=== PATIENT | male | born 1945 | race Caucasian/White ===

== ENCOUNTER → 2018-06-26 | Outpatient (CLI) | payer MEDICARE ==
[2018-06-26 10:05] LABS: Basophils # (A) 0.1 k/uL (0-0.2); Basophils % (A) 1 %; Eosinophils # (A) 0.5 k/uL (0-0.7); Eosinophils % (A) 5 %; HCT 49.2 % (39.0-53.0); HGB 15.5 gm/dL (13.0-17.5); Lymphocytes # (A) 1.2 k/uL (1.0-4.8); Lymphocytes % (A) 12 %; MCH 27.7 pg (25.0-35.0); MCHC 31.6 g/dL (31.0-37.0); MCV 87.7 fL (80.0-100.0); Mean Platelet Volume 7.2; Monocytes # (A) 0.8 k/uL (0-1.0); Monocytes % (A) 8 %; Neutrophils # (A) 7.2 k/uL (1.3-7.7); Neutrophils % (A) 73 %; Platelet Count 416 k/uL (150-450); RBC 5.62 m/uL (4.30-5.90); RDW 13.7 % (11.5-15.5); WBC 9.9 k/uL (3.8-10.6)
[2018-06-26 17:46] LABS: Albumin/Globulin Ratio 1.82 (1.60-3.17); Anion Gap 7.6 mmol/L (4.00-12.00); Calcium 9.4 mg/dL (8.7-10.3); Carbon Dioxide 28.4 mmol/L (21.6-31.8); Globulin 2.2 g/dL (1.6-3.3); LDL Cholesterol,Calculated 160.6 mg/dL (0.0-131.0); Potassium 4.9 mmol/L (3.5-5.5); Total Bilirubin 0.5 mg/dL (0.2-1.2); Total Protein 6.2 g/dL (6.2-8.2); VLDL Calculation 22.4 mg/dL (5.00-40.00)
[2018-06-26 17:54] LABS: T4, Free (Free Thyroxine) 1.1 ng/dL (0.80-1.80)
== END | disposition home or self-care (01) ==
LOC: LABWHC1 08:20
PROVIDERS: ATTEND Internal Medicine Critical Care Medicine
DX: E78.5 Hyperlipidemia, unspecified (principal); I48.91 Unspecified atrial fibrillation; I82.409 Acute embolism and thrombosis of unspecified deep veins of unspecified lower extremity
CPT/HCPCS: 84439; 80061; 80053; 84443; 85025; 82306; 83036; 36415; G0103

== ENCOUNTER 2020-10-19 09:35 | Emergency (ER) | payer MEDICARE ==
[2020-10-19 09:48] VITALS: BP 152/76; PULSE 74; RESP 18; TEMP 98.4
[2020-10-19] MEDS ORDERED: methylPREDNISolone SOD SUCCI 125 MG/2 ML VIAL IM ONE (09:56)
--- NOTE | 2020-10-19 09:59 | ED ---
Skin/Abscess/FB HPI - General Chief complaint: Skin/Abscess/Foreign Body Stated complaint: Poison Meri on face Time Seen by Provider: 10/19/20 09:49 Source: patient, RN notes reviewed Mode of arrival: ambulatory Limitations: no limitations - History of Present Illness Initial comments: 75-year-old male presents emergency Department chief complaint of poison meri. Patient states he was cutting up and will treat states her some eduin on it. Patient states that he noticed some rash on his face, extremities. Patient states. She has been using calamine lotion. He states he was worried because his eyes have some swelling. Denies any difficulty breathing or difficulty swallowing patient offers no complaints. - Related Data Previous Rx's Medication Instructions Recorded predniSONE 10 mg PO DIRECTED #20 tab 10/19/20 Allergies Allergy/AdvReac Type Severity Reaction Status Date / Time cephalexin [From Keflex] Allergy Severe Dyspnea Verified 10/19/20 09:44 Review of Systems ROS Statement: Those systems with pertinent positive or pertinent negative responses have been documented in the HPI. ROS Other: All systems not noted in ROS Statement are negative. Past Medical History Past Medical History: Hyperlipidemia, Hypertension History of Any Multi-Drug Resistant Organisms: None Reported Past Surgical History: Coronary Bypass/CABG Additional Past Surgical History / Comment(s): omenectomy Past Psychological History: No Psychological Hx Reported Smoking Status: Never smoker Past Alcohol Use History: Occasional Past Drug Use History: None Reported General Exam Limitations: no limitations General appearance: alert, in no apparent distress Head exam: Present: atraumatic, normocephalic, normal inspection Eye exam: Present: normal appearance, PERRL, EOMI, periorbital swelling. Absent: scleral icterus, conjunctival injection ENT exam: Present: normal exam, normal oropharynx, mucous membranes moist Neck exam: Present: normal inspection, full ROM. Absent: tenderness, meningismus, lymphadenopathy Respiratory exam: Present: normal lung sounds bilaterally. Absent: respiratory distress, wheezes, rales, rhonchi, stridor Cardiovascular Exam: Present: regular rate, normal rhythm, normal heart sounds. Absent: systolic murmur, diastolic murmur, rubs, gallop, clicks Neurological exam: Present: alert, oriented X3, CN II-XII intact Skin exam: Present: warm, dry, intact, normal color, rash (Vesicular rash on extremities, facial region) Course Vital Signs 10/19/20 09:44 Temperature 98.4 F Pulse Rate 74 Respiratory 18 Rate Blood Pressure 152/76 O2 Sat by Pulse 97 Oximetry Medical Decision Making - Medical Decision Making Patient presented for poison meri. Patient does have some periorbital swelling patient was given IM Solu-Medrol be discharged on prednisone. Disposition Clinical Impression: Contact dermatitis, Poison meri dermatitis Disposition: HOME SELF-CARE Condition: Stable Instructions (If sedation given, give patient instructions): Poison Meri (ED) Additional Instructions: Please return to the Emergency Department if symptoms worsen or any other concerns. Prescriptions: predniSONE 10 mg PO DIRECTED #20 tab Is patient prescribed a controlled substance at d/c from ED?: No Referrals: Vishnu Butcher DO [Primary Care Provider] - 1-2 days Time of Disposition: 09:59
== END 2020-10-19 10:30 | disposition home or self-care (01) ==
LOC: EC 09:35
DX: L23.7 Allergic contact dermatitis due to plants, except food (principal); I10 Essential (primary) hypertension; E78.5 Hyperlipidemia, unspecified; Z88.1 Allergy status to other antibiotic agents
CPT/HCPCS: 96372; 99282; J2930

== ENCOUNTER → 2020-11-16 | Outpatient (CLI) | payer MEDICARE ==
[2020-11-16 16:08] LABS: Basophils # (A) 0.08 X 10*3/uL (0.00-0.10); Basophils % (A) 0.8 %; Eosinophils # (A) 0.45 X 10*3/uL (0.04-0.35); Eosinophils % (A) 4.3 %; HCT 45.2 % (39.6-50.0); HGB 14.1 g/dL (13.0-17.0); Lymphocytes # (A) 1.29 X 10*3/uL (0.90-5.00); Lymphocytes % (A) 12.2 %; MCH 28.4 pg (27.0-32.0); MCHC 31.2 g/dL (32.0-37.0); MCV 90.9 fL (80.0-97.0); Mean Platelet Volume 10.3 fL (9.5-12.2); Monocytes # (A) 1.16 X 10*3/uL (0.20-1.00); Neutrophils # (A) 7.51 X 10*3/uL (1.80-7.70); Neutrophils % (A) 71.2 %; Platelet Count 507 X 10*3/uL (140-440); RBC 4.97 X 10*6/uL (4.40-5.60); RDW 14.9 % (11.5-14.5); WBC 10.54 X 10*3/uL (4.50-10.00)
[2020-11-16 17:44] LABS: African American GFR (CKD) 95.8 (60.0-200.0); Albumin 3.9 g/dL (3.80-4.90); Albumin/Globulin Ratio 1.63 (1.60-3.17); Anion Gap 7.9 mmol/L (4.00-12.00); BUN/Creat Ratio 11.11 Ratio (12.00-20.00); Bilirubin, Conjugated 0.2 mg/dL (0.20-0.40); Bilirubin,Unconjugated 0.3 mg/dL; Calcium 8.9 mg/dL (8.7-10.3); Carbon Dioxide 27.1 mmol/L (21.6-31.8); Chol/HDL Ratio 3.62; Globulin 2.4 g/dL (1.6-3.3); LDL Cholesterol,Calculated 74.4 mg/dL (0.0-131.0); Non-African American GFR(CKD) 82.7 (60.0-200.0); Potassium 4.6 mmol/L (3.5-5.5); Total Bilirubin 0.5 mg/dL (0.2-1.2); Total Protein 6.3 g/dL (6.2-8.2); VLDL Calculation 14.6 mg/dL (5.00-40.00)
[2020-11-16 17:52] LABS: PSA Annual Screen 2.7 ng/mL (0.0-4.0)
== END | disposition home or self-care (01) ==
LOC: LABWHC1 07:57
PROVIDERS: ATTEND Internal Medicine Critical Care Medicine
DX: Z00.00 Encounter for general adult medical examination without abnormal findings (principal); E55.9 Vitamin D deficiency, unspecified; I25.10 Atherosclerotic heart disease of native coronary artery without angina pectoris; R53.83 Other fatigue; R05 Cough
CPT/HCPCS: 84439; 80061; 80053; 82248; 84443; 85025; 82306; 83036; 36415; G0103

== ENCOUNTER → 2021-11-28 | Outpatient (CLI) | payer MEDICARE ==
[2021-11-28 15:15] LABS: Basophils # (A) 0.06 X 10*3/uL (0.00-0.10); Basophils % (A) 0.6 %; Eosinophils # (A) 0.28 X 10*3/uL (0.04-0.35); Eosinophils % (A) 2.6 %; HCT 44.3 % (39.6-50.0); HGB 14.3 g/dL (13.0-17.0); Immature Grans, Automated 0.4 %; Lymphocytes # (A) 1.01 X 10*3/uL (0.90-5.00); Lymphocytes % (A) 9.4 %; MCH 28.3 pg (27.0-32.0); MCHC 32.3 g/dL (32.0-37.0); MCV 87.7 fL (80.0-97.0); Mean Platelet Volume 10.4 fL (9.5-12.2); Monocytes # (A) 1.05 X 10*3/uL (0.20-1.00); Monocytes % (A) 9.7 %; NRBC Per 100 WBC 0 /100 WBCS (0.0-0.0); Neutrophils # (A) 8.36 X 10*3/uL (1.80-7.70); Neutrophils % (A) 77.3 %; Platelet Count 444 X 10*3/uL (140-440); RBC 5.05 X 10*6/uL (4.40-5.60); RDW 14.6 % (11.5-14.5)
[2021-11-28 18:18] LABS: ALT 14 U/L (10-49); AST 13 U/L (14-35); African American GFR (CKD) 95.1 (60.0-200.0); Albumin 3.8 g/dL (3.8-4.9); Albumin/Globulin Ratio 1.46 (1.60-3.17); Alkaline Phosphatase 111 U/L (41-126); BUN/Creat Ratio 14.56 Ratio (12.00-20.00); Bilirubin, Conjugated <0.20 mg/dL (0.20-0.40); Blood Urea Nitrogen 13.1 mg/dL (9.0-27.0); Calcium 9.1 mg/dL (8.7-10.3); Carbon Dioxide 26.8 mmol/L (20.0-27.5); Chloride 103 mmol/L (96-109); Chol/HDL Ratio 3.44 Ratio; Globulin 2.6 g/dL (1.6-3.3); Glucose 93 mg/dL (70-110); LDL Cholesterol,Calculated 90.3 mg/dL (0.0-131.0); Non-African American GFR(CKD) 82.1 (60.0-200.0); Potassium 4.5 mmol/L (3.5-5.5); Sodium 139 mmol/L (135-145); Total Protein 6.4 g/dL (6.2-8.2); VLDL Calculation 13.34 mg/dL (5.00-40.00)
== END | disposition home or self-care (01) ==
LOC: LABWHC1 10:19
PROVIDERS: ATTEND Internal Medicine Critical Care Medicine
DX: I25.10 Atherosclerotic heart disease of native coronary artery without angina pectoris (principal); I82.409 Acute embolism and thrombosis of unspecified deep veins of unspecified lower extremity; I48.20 Chronic atrial fibrillation, unspecified
CPT/HCPCS: 84439; 80061; 80053; 82248; 84443; 85025; 84403; 82306; 83036; 36415; G0103

== ENCOUNTER → 2022-11-27 | Outpatient (CLI) | payer MEDICARE ==
[2022-11-27 12:50] LABS: Appearance,Urine Clear (Clear); Bilirubin,Urine Negative (Negative); Blood,Urine Negative (Negative); Color,Urine Yellow; Glucose,Urine (UA) Negative (Negative); Ketones,Urine Negative (Negative); Leukocyte Esterase,Urine Negative (Negative); Nitrite,Urine Negative (Negative); PH, Urine 5.5 (5.0-8.0); Protein,Urine Negative (Negative); Specific Gravity,Urine 1.026 (1.001-1.035); Urobilinogen,Urine <2.0 mg/dL (<2.0)
[2022-11-27 15:25] LABS: Basophils # (A) 0.05 X 10*3/uL (0.00-0.10); Basophils % (A) 0.4 %; Eosinophils # (A) 0.19 X 10*3/uL (0.04-0.35); Eosinophils % (A) 1.5 %; HCT 46.4 % (39.6-50.0); Lymphocytes # (A) 1.19 X 10*3/uL (0.90-5.00); Lymphocytes % (A) 9.5 %; MCHC 32.3 d/dL (32.0-37.0); MCV 89.7 FL (80.0-97.0); Mean Platelet Volume 10.6 FL (9.5-12.2); Monocytes # (A) 1.29 X 10*3/uL (0.20-1.00); Monocytes % (A) 10.3 %; NRBC Per 100 WBC 0 X 10*3/uL (0.00-0.01); Neutrophils # (A) 9.71 X 10*3/uL (1.80-7.70); Neutrophils % (A) 77.8 %; Platelet Count 426 X 10*3/uL (140-440); RBC 5.17 X 10*6/uL (4.40-5.60); RDW 14.6 % (11.5-14.5); WBC 12.49 X 10*3/uL (4.50-10.00)
== END | disposition home or self-care (01) ==
LOC: LABWHC1 11:50
PROVIDERS: ATTEND Internal Medicine Critical Care Medicine
DX: R53.83 Other fatigue (principal); R35.0 Frequency of micturition
CPT/HCPCS: 36415; 81003; 85025

== ENCOUNTER → 2022-12-09 | Outpatient (CLI) | payer MEDICARE ==
[2022-12-09 12:42] LABS: African American GFR (CKD) >90 (>60 ml/min/1.73 sqM); Blood Urea Nitrogen 13 mg/dL (9-20); Non-African American GFR(CKD) 85 (>60 ml/min/1.73 sqM)
--- NOTE | 2022-12-09 13:54 | CT ---
EXAMINATION TYPE: CT chest w con CT DLP: 529.3 mGycm, Automated exposure control for dose reduction was used. DATE OF EXAM: 12/09/2022 1:14 PM COMPARISON: Chest radiograph from 11/27/2022, CT chest 10/09/2015. CLINICAL INDICATION:Male, 77 years old with history of R06.09 OTHER FORMS OF DYSPNEA; PHH, c/o SOB TECHNIQUE: Multiple axial images were obtained through the chest without IV contrast. Lack of IV or o ral contrast limits evaluation of solid and hollow organ viscera. . Coronal and sagittal reformats re viewed. FINDINGS: LUNGS/ PLEURA: Trace right chronic appearing pleural effusion with peripheral wall thickening. Scatte red calcified pleural plaques throughout the lungs. Lower lung punctate calcified granuloma. Right l ower lobe masslike consolidation measuring 6.7 x 2.8 cm (series 4, image 39). Linear scarring identif ied within the lingula and right middle lobe. AIRWAY: Patent and unremarkable.. HEART: Mild cardiomegaly. No pericardial effusion. Aortic valvular and mitral annulus calcifications. Thinning of the ventricular apex. Mild coronary artery calcifications. Post CABG changes. MEDIASTINUM: No evidence of adenopathy. VASCULATURE: No aortic aneurysm. Atherosclerotic calcification of the aorta and its branches. MUSCULOSKELETAL: No acute osseous abnormalities. Moderate degenerative changes of the visualized thor acic spine. Median sternotomy wires. Orthopedic anchors within the right humeral head. SOFT TISSUES/LYMPH NODES: Minimal bilateral gynecomastia. LOWER NECK: No significant findings. UPPER ABDOMEN: Cholelithiasis. IMPRESSION: 1. Trace chronic appearing right pleural effusion with peripheral wall thickening and right lower lob e 6.7 cm masslike consolidation favored to represent atelectasis. Underlying neoplasm is not entirely excluded. This can be further evaluated with PET CT as clinically indicated versus short-term CT ambar st follow-up in 3 months. 2. Scattered calcified pleural plaques redemonstrated. Correlate for asbestosis exposure. 3. Cholelithiasis.
== END | disposition home or self-care (01) ==
LOC: RADCTMAIN 12:02
PROVIDERS: ATTEND Internal Medicine Critical Care Medicine
DX: J90 Pleural effusion, not elsewhere classified (principal); K80.20 Calculus of gallbladder without cholecystitis without obstruction; J94.8 Other specified pleural conditions; R06.09 Other forms of dyspnea
CPT/HCPCS: 82565; 84520; 71260; 36415; Q9967

== ENCOUNTER → 2022-12-13 | Outpatient (CLI) | payer MEDICARE ==
--- NOTE | 2022-12-16 12:42 | PE ---
EXAMINATION TYPE: PET CT fusion skull to thigh DATE OF EXAM: 12/13/2022 COMPARISON: CT chest 12/09/2022 Prior PET/CT: None HISTORY: Right lower lobe lung mass TECHNIQUE: Following the intravenous administration of 12.2 mCi of F-18 FDG, whole body images are p erformed from the skull base to the midthigh. Images are reviewed on the computer in the coronal, ax ial, and sagittal planes. Reconstructed rotating images are created on independent workstation and r eviewed on the computer. A localization and attenuation correction CT is performed in conjunction w ith the PET scan. DLP: 500.85 mGycm SCAN: Initial Blood glucose: 92 mg/dL Average Mediastinum SUV: 2.15 Average Liver SUV: 2.73 FINDINGS: NECK: There is a small amount of uptake within the left thyroid, image 58, SUV value 3.07. Ultrasoun d recommended for additional evaluation. Neoplasm at this level is not excluded. THORAX: Mass posterior right lung without significant abnormal uptake. Example image 101, SUV value 1 .48 ABDOMEN: No abnormal uptake PELVIS: No abnormal uptake OSSEOUS STRUCTURES: No abnormal uptake LOCALIZATION CT: Right posterior lung base mass again evident. Calcification along the diaphragm is p resent. A small right pleural effusion is present. COMPARISON: Consolidation posterior right lung appears stable. IMPRESSION: 1. Intermediate uptake within the consolidation mass posterior right lung. Infection should be consid ered within the differential. Low-grade neoplasm is not excluded. 2. Incidental note made of uptake within the right lobe thyroid. Additional evaluation for thyroid no dules recommended. Neoplasm not excluded.
== END | disposition home or self-care (01) ==
LOC: RADPETMAIN 13:03
PROVIDERS: ATTEND Internal Medicine Critical Care Medicine
DX: R91.8 Other nonspecific abnormal finding of lung field (principal)
CPT/HCPCS: 78815; A9552

== ENCOUNTER 2023-01-17 10:49 | Day surgery (SDC) | payer MEDICARE ==
[~2023-01-17 10:49] MED LIST: ATROPINE SULFATE 0.4 MG/ML 1 ML VIAL IM ONE; LACTATED RINGERS 1,000 ML IV SCH; LIDOCAINE 1% (10MG/ML) FOR IV START INTRADERMA PRN
[2023-01-17] MEDS ORDERED: ONDANSETRON 4 MG/2 ML VIAL ONE (11:35)
[2023-01-17] MEDS ORDERED: ONDANSETRON 4 MG/2 ML VIAL IVP ONE (11:37)
[2023-01-17] MEDS ORDERED: DEXAMETHASONE SOD PHOSPHATE 4 MG/ML 1 ML VIAL IVP ONE (11:38)
[2023-01-17] MEDS ORDERED: MIDAZOLAM 2 MG/2 ML VIAL ONE (11:53)
[2023-01-17] MEDS ORDERED: LIDOCAINE 2% (PF) 20 MG/ML 5 ML VIAL ONE (11:53)
[2023-01-17] MEDS ORDERED: PHENYLEPHRINE-0.9% NACL SYG 1,000 MCG/10 ML SYRINGE ONE (11:53)
[2023-01-17] MEDS ORDERED: ROCURONIUM 10 MG/ML (5 ML VIAL) IV ONE (11:53)
[2023-01-17] MEDS ORDERED: GLYCOPYRROLATE 0.2 MG/ML 2 ML VIAL ONE (11:53)
[2023-01-17] MEDS ORDERED: PROPOFOL 10 MG/ML 20 ML VIAL IV ONE (11:53)
[2023-01-17] MEDS ORDERED: NEOSTIGMINE 1 MG/ML 10 ML VIAL ONE (11:53)
[2023-01-17] MEDS ORDERED: fentaNYL (PF) 50 MCG/ML 2 ML AMP ONE (11:53)
[2023-01-17] MEDS ORDERED: SUCCINYLCHOLINE CHLORIDE 200 MG/10 ML VIAL IV ONE (11:53)
[2023-01-17 12:50] VITALS: TEMP 97
[2023-01-17 13:08] VITALS: RESP 16
--- NOTE | 2023-01-17 13:13 | XR ---
EXAMINATION TYPE: XR chest 1V portable DATE OF EXAM: 01/17/2023 Comparison: 03/05/2016, CT chest 12/09/2022 Clinical History: 77-year-old male Post bronch w/ biopsy Findings: Median sternotomy wires and post-CABG clips. Heart is borderline in size. Bibasilar opacities, right greater left. Trace right pleural effusion. No appreciable pneumothorax. Impression: 1. Right lower lung opacity seems to have increased and could represent some postbiopsy changes/contu saranya. Follow-up advised. 2. Ongoing small right pleural effusion. No appreciable pneumothorax. 3. Some patchy density is also developing on the left base. Correlate to exclude mild CHF.
[2023-01-17 14:23] VITALS: BP 148/64; PULSE 71
--- NOTE | 2023-01-17 15:59 | PCN ---
PROCEDURE NOTE This is a Pulmonary/Critical Care procedure. PROCEDURES PERFORMED: Airway examination, therapeutic lavage, bronchoalveolar lavage of right lower lobe, brushes of right lower lobe, and transbronchial biopsies of right lower lobe. PREOPERATIVE DIAGNOSIS: Inflammatory/infectious infiltrate versus cancer, right lower lobe. There was informed consent. There was universal time-out. The patient's procedure took place in room #1 [facility]. FIRST TELECOMMUNICATOR SUPERVISOR: Dr. Pepper Gamez. ANESTHESIA PROVIDED: General anesthesia. DESCRIPTION OF PROCEDURE: After the patient was adequately sedated and under the effects of general anesthesia, the bronchoscope was inserted through the bronchoscope adapter connected to the endotracheal tube. The bronchoscope was pushed through the endotracheal tube into the trachea. The trachea itself appeared normal. Tracheal sridhar was sharp. We did a quick evaluation of the right upper lobe and its 3 segments, right middle lobe and its 2 segments, right lower lobe and its 5 segments, left upper lobe proper and its 2 segments, lingula and its 2 segments, and left lower lobe and its 4 segments. There was no endobronchial disease. Next, under fluoroscopic guidance, we did brushes to the right lower lobe. Also, under fluoroscopic guidance, we did 8 to 9 transbronchial biopsies to the right lower lobe. Finally, we washed the right lower lobe. There was no significant bleeding. There was no obvious pneumothorax. The bronchoscope was withdrawn. The patient's specimens will be sent to the laboratory for analysis. There was no immediate complication. The patient will be recovered by Anesthesia. MMODL / IJN: [id number] /
--- NOTE | 2023-01-17 18:51 | FL ---
EXAMINATION TYPE: FL bronchoscopy DATE OF EXAM: 01/17/2023 FLUOROSCOPY Fluoroscopy time of 49 seconds was used during right lower lobe bronchoscopy with biopsy. 10 image/s document/s the procedure. DAP 0.15557 mGym2
[2023-01-17 23:05] LABS: Appearance,BF Cloudy (Clear); RBC, Body Fluid 84 /UL (0-2000)
[2023-01-20 09:51] LABS: Nucleated Cells, Body Fluid 9 /UL
== END 2023-01-17 14:31 | disposition home or self-care (01) ==
LOC: ORWHC2ENDO 10:49
PROVIDERS: ATTEND Internal Medicine Critical Care Medicine
DX: J90 Pleural effusion, not elsewhere classified (principal); I25.10 Atherosclerotic heart disease of native coronary artery without angina pectoris; I10 Essential (primary) hypertension; E78.5 Hyperlipidemia, unspecified; Z86.718 Personal history of other venous thrombosis and embolism; Z85.828 Personal history of other malignant neoplasm of skin; Z95.5 Presence of coronary angioplasty implant and graft; Z79.02 Long term (current) use of antithrombotics/antiplatelets; Z79.82 Long term (current) use of aspirin; Z79.899 Other long term (current) drug therapy
CPT/HCPCS: 87798 ×3; 87496; 87498; 87529; 88104; 88108; 88305; 89050; 87502; 87634; 87070; 87205; 87116; 87102; 87206; 71045; 31628; 31622; 31623; 31624; J2250; J0330; J1100; J2710; J2405; J3010; J2704; J2001; J2371

== ENCOUNTER → 2023-01-24 | Outpatient (CLI) | payer MEDICARE ==
--- NOTE | 2023-01-24 15:34 | US ---
EXAMINATION TYPE: US thyroid st tissue head/neck DATE OF EXAM: 01/24/2023 COMPARISON: PET CT 12/13/2022 CLINICAL INDICATION: Male, 78 years old with history of E04.1 NONTOXIC SINGLE THYROID NODULE; PET sca nned showed right thyroid nodule. GLAND SIZE: Right Lobe: 3.6 x 1.9 x 1.9 cm Overall Parenchyma: heterogenous Left Lobe: 3.1 x 1.8 x 1.5 cm Overall Parenchyma: heterogenous Isthmus Thickness: 0.3 cm NODULES- Suboptimal due to gland location RIGHT: # of nodules measured on right: 1 1. 0.9 X 0.7 x 0.5 cm, mid mid, solid or almost completely solid, hypoechoic nodule, which is wider than tall, with smooth margins, without echogenic foci. TR 4. Prior size: No prior ultrasound LEFT: # of nodules measured on left: 0 ISTHMUS: # of nodules measured in the isthmus: 0 Bilateral neck scanned, no evidence of lymphadenopathy. IMPRESSION: Subcentimeter right thyroid lobe TR 4 nodule. Follow-up ultrasound in one year is recommended.
== END | disposition home or self-care (01) ==
LOC: RADUSWWP 14:57
PROVIDERS: ATTEND Internal Medicine Critical Care Medicine
DX: E04.1 Nontoxic single thyroid nodule (principal)
CPT/HCPCS: 76536

== ENCOUNTER → 2023-09-17 | Outpatient (CLI) | payer MEDICARE ==
[2023-09-17 15:21] LABS: Basophils # (A) 0.05 X 10*3/uL (0.00-0.10); Basophils % (A) 0.5 %; Eosinophils # (A) 0.25 X 10*3/uL (0.04-0.35); Eosinophils % (A) 2.3 %; HCT 45.3 % (39.6-50.0); HGB 13.9 g/dL (13.0-17.0); Lymphocytes # (A) 0.96 X 10*3/uL (0.90-5.00); Lymphocytes % (A) 8.8 %; MCH 28.4 pg (27.0-32.0); MCHC 30.7 g/dL (32.0-37.0); MCV 92.6 FL (80.0-97.0); Monocytes # (A) 0.97 X 10*3/uL (0.20-1.00); Monocytes % (A) 8.9 %; NRBC Per 100 WBC 0 X 10*3/uL (0.00-0.01); Neutrophils # (A) 8.64 X 10*3/uL (1.80-7.70); Platelet Count 397 X 10*3/uL (140-440); RBC 4.89 X 10*6/uL (4.40-5.60); RDW 14.6 % (11.5-14.5); WBC 10.93 X 10*3/uL (4.50-10.00)
[2023-09-17 16:33] LABS: Chloride 105 mmol/L (96-109); Glucose 101 mg/dL (70-110); Potassium 4.6 mmol/L (3.5-5.5); Sodium 143 mmol/L (135-145); VLDL Calculation 13.66 mg/dL (5.00-40.00)
[2023-09-17 16:34] LABS: ALT 11 U/L (10-49); AST 14 U/L (14-35); Albumin 3.8 g/dL (3.8-4.9); Albumin/Globulin Ratio 1.58 Ratio (1.60-3.17); Alkaline Phosphatase 105 U/L (41-126); Bilirubin, Conjugated <0.20 mg/dL (0.20-0.40); Bilirubin,Unconjugated >0.20 mg/dL (0.20-1.00); Calcium 9.3 mg/dL (8.7-10.3); Carbon Dioxide 27.5 mmol/L (21.6-31.8); Globulin 2.4 g/dL (1.6-3.3); T4, Free (Free Thyroxine) 1.12 ng/dL (0.80-1.80); Total Bilirubin 0.4 mg/dL (0.3-1.2); Total Protein 6.2 g/dL (6.2-8.2)
== END | disposition home or self-care (01) ==
LOC: LABWHC1 11:11
PROVIDERS: ATTEND Internal Medicine Critical Care Medicine
DX: Z00.00 Encounter for general adult medical examination without abnormal findings (principal); Z12.5 Encounter for screening for malignant neoplasm of prostate; I48.91 Unspecified atrial fibrillation; I25.10 Atherosclerotic heart disease of native coronary artery without angina pectoris; R05.9 Cough, unspecified; R53.83 Other fatigue
CPT/HCPCS: 84439; 80061; 80053; 82248; 84443; 85025; 83036; 36415; G0103

== ENCOUNTER → 2023-09-24 | Outpatient (CLI) | payer MEDICARE ==
[2023-09-24 11:15] LABS: African American GFR (CKD) >90 (>60 ml/min/1.73 sqM); Blood Urea Nitrogen 15 mg/dL (9-20); Non-African American GFR(CKD) 88 (>60 ml/min/1.73 sqM)
--- NOTE | 2023-09-24 13:08 | CT ---
EXAMINATION TYPE: CT chest w con DATE OF EXAM: 09/24/2023 COMPARISON: 12/09/2022 and 10/09/2015 HISTORY: 78-year-old male SOB x2 years TECHNIQUE: Contiguous axial scanning of the chest after the administration of 100 mL of Isovue 300. Coronal/sagittal reconstructions performed. CT DLP: 808mGycm. Automatic exposure control utilized for a dose reduction. FINDINGS: Redemonstrated are median sternotomy wires. The inferior portion of the sternotomy shows chronic baltazar tases. Heart remains mildly enlarged without pericardial effusion. Mild to moderate atherosclerotic arch calcifications with conventional arch vessel branching anatomy. Enlarged main right and left pulmonary arteries up to 3.0 cm may be seen with pulmonary artery hypert ension. No thoracic lymphadenopathy by CT size criteria. Strandy pleural parenchymal scarring redemonstrated at the mid and lower lungs. Pleural calcification s overlying the right hemidiaphragm with chronic small right pleural effusion with corresponding mild pleural thickening and adjacent subpleural mass posterior right lower lobe measuring up to 5.7 cm in keeping with rounded atelectasis. Some additional scattered calcified pleural plaques are present an teriorly at the upper lungs. Minimal interstitial fibrosis at the left lung base is similar. Visualized upper abdomen shows some pelvic cysts left kidney and some layering gallstones measuring u p to 9 mm. Bones: [facility] throughout the mid and lower thoracic spine. IMPRESSION: 1. Correlate for asbestos-related pleural disease. There is a stable small right pleural effusion wit h associated pleural thickening and a 5.7 cm area of suspected rounded atelectasis, unchanged from 01/2023. Ongoing follow-up as the findings are new from 10/09/2015. 2. Additional unchanged strandy scarring at both lung bases. Mild interstitial fibrosis at the left l jesus base. (However, again, new from 2016). 3. Pulmonary arterial hypertension. 4. Incidental: Cholelithiasis.
== END | disposition home or self-care (01) ==
LOC: RADCTMAIN 10:29
PROVIDERS: ATTEND Internal Medicine Critical Care Medicine
DX: I27.21 Secondary pulmonary arterial hypertension (principal); K80.20 Calculus of gallbladder without cholecystitis without obstruction; J84.10 Pulmonary fibrosis, unspecified; J90 Pleural effusion, not elsewhere classified; R91.8 Other nonspecific abnormal finding of lung field
CPT/HCPCS: 82565; 84520; 71260; 36415; Q9967

== ENCOUNTER 2024-07-02 12:26 | Emergency (ER) | payer MEDICARE ==
[2024-07-02] MEDS: DEXAMETHASONE SOD PHOSPHATE 10 MG/ML 1 ML VIAL IM STA (13:10)
--- NOTE | 2024-07-02 13:43 | ED ---
Skin/Abscess/FB HPI - General Chief complaint: Skin/Abscess/Foreign Body Stated complaint: Rash outbreak on body Time Seen by Provider: 07/02/24 12:58 Source: patient, RN notes reviewed Mode of arrival: ambulatory - History of Present Illness Initial comments: 79-year-old male presenting for rash x 2 weeks. Reports the rash began in the bilateral posterior lower legs and spread up the legs and into the bilateral arms. States the rash is itchy and painful. States he is constantly scratching at the areas. States about 2 weeks ago him and his used a new solution to clean the couch, otherwise denies any new medications, soaps, lotions, or detergents. States he does go outside every other day to fill the bird feeder however denies new hiking areas. Denies fever, nausea, vomiting. - Related Data Home Medications Medication Instructions Recorded Confirmed Aspirin 81 mg PO DAILY 01/15/23 01/15/23 Clopidogrel [Plavix] 75 mg PO DAILY 01/15/23 01/15/23 Furosemide [Lasix] 20 mg PO DAILY 01/15/23 01/15/23 Ibuprofen [Motrin Ib] 400 mg PO DIRECTED PRN 01/15/23 01/15/23 Rosuvastatin [Crestor] 10 mg PO HS 01/15/23 01/15/23 Unk Benadryl 1 tab PO DIRECTED PRN 01/15/23 01/15/23 Previous Rx's Medication Instructions Recorded Cephalexin [Keflex] 500 mg PO Q12H 7 Days #14 cap 07/02/24 predniSONE [Deltasone] 40 mg PO DAILY #10 tab 07/02/24 Allergies Allergy/AdvReac Type Severity Reaction Status Date / Time No Known Allergies Allergy Verified 07/02/24 12:34 Review of Systems ROS Statement: Those systems with pertinent positive or pertinent negative responses have been documented in the HPI. ROS Other: All systems not noted in ROS Statement are negative. Past Medical History Past Medical History: Cancer, Deep Vein Thrombosis (DVT), Hyperlipidemia, Hypertension, Osteoarthritis (OA) Additional Past Medical History / Comment(s): left knee DVT 2019. SOB spot on his lung RLL , watching rt thyroid. hx skin cancer on face History of Any Multi-Drug Resistant Organisms: None Reported Past Surgical History: Coronary Bypass/CABG Additional Past Surgical History / Comment(s): omenectomy, cabg 2016 pt thinks with stents. carotid stents 2020 left , 2021 rt side Past Anesthesia/Blood Transfusion Reactions: No Reported Reaction Additional Past Anesthesia/Blood Transfusion Reaction / Comment(s): no blood transfusions. Past Psychological History: No Psychological Hx Reported Smoking Status: Never smoker Past Alcohol Use History: Occasional Past Drug Use History: None Reported - Past Family History Father Family Medical History: No Reported History General Exam General appearance: alert, in no apparent distress Head exam: Present: atraumatic, normocephalic, normal inspection Eye exam: Present: normal appearance, PERRL, EOMI. Absent: scleral icterus, conjunctival injection, periorbital swelling Respiratory exam: Present: normal lung sounds bilaterally. Absent: respiratory distress, wheezes, rales, rhonchi, stridor Cardiovascular Exam: Present: regular rate, normal rhythm, normal heart sounds. Absent: systolic murmur, diastolic murmur, rubs, gallop, clicks GI/Abdominal exam: Present: soft, normal bowel sounds. Absent: distended, tenderness, guarding, rebound, rigid Neurological exam: Present: alert, oriented X3 Psychiatric exam: Present: normal affect, normal mood Skin exam: Present: warm, dry, intact, normal color, rash (diffuse erythematous, scaly maculopapular rash present on dorsal aspect of bilateral lower legs extending into the dorsal thighs. Also present on dorsal aspect of bilateral upper extremities) Course Vital Signs 07/02/24 07/02/24 12:29 13:04 Temperature 97.9 F 98 F Pulse Rate 76 77 Respiratory 18 16 Rate Blood Pressure 195/66 177/73 O2 Sat by Pulse 98 98 Oximetry Medical Decision Making - Medical Decision Making Was pt. sent in by a medical professional or institution (, PA, SURGICAL INSTRUMENT MAKER, urgent care, hospital, or fdc...) When possible be specific @ -No Did you speak to anyone other than the patient for history (EMS, parent, family, police, friend...)? What history was obtained from this source @ -No Did you review nursing and triage notes (agree or disagree)? Why? @ -I reviewed and agree with nursing and triage notes Were old charts reviewed (outside hosp., previous admission, EMS record, old EKG, old radiological studies, urgent care reports/EKG's, fdc records)? Report findings @ -No old charts were reviewed Differential Diagnosis (chest pain, altered mental status, abdominal pain women, abdominal pain men, vaginal bleeding, weakness, fever, dyspnea, syncope, headache, dizziness, GI bleed, back pain, seizure, CVA, palpatations, mental health, musculoskeletal)? @ -Contact dermatitis, poison coretta/oak, cellulitis, atopic dermatitis, psoriasis, eczema EKG interpreted by me (3pts min.). @ -None X-rays interpreted by me (1pt min.). @ -None done CT interpreted by me (1pt min.). @ -None done U/S interpreted by me (1pt. min.). @ -None done What testing was considered but not performed or refused? (CT, X-rays, U/S, labs)? Why? @ -None What meds were considered but not given or refused? Why? @ -None Did you discuss the management of the patient with other professionals (professionals i.e. , PA, SURGICAL INSTRUMENT MAKER, lab, RT, psych nurse, dialysis social worker, mortgage loan counselor, teacher, radio electronics officer, caseworker protective services)? Give summary @ -No Was smoking cessation discussed for >3mins.? @ -No Was critical care preformed (if so, how long)? @ -No Were there social determinants of health that impacted care today? How? (Homelessness, low income, unemployed, alcoholism, drug addiction, transportation, low edu. Level, literacy, decrease access to med. care, [place] [facility], rehab)? @ -No Was there de-escalation of care discussed even if they declined (Discuss DNR or withdrawal of care, Hospice)? DNR status @ -No What co-morbidities impacted this encounter? (DM, HTN, Smoking, COPD, CAD, Cancer, CVA, ARF, Chemo, Hep., AIDS, mental health diagnosis, sleep apnea, morbid obesity)? @ -None Was patient admitted / discharged? Hospital course, mention meds given and route, prescriptions, significant lab abnormalities, going to OR and other pertinent info. @ -Discharge. 7-year-old male presenting for rash x 2 weeks. No red flag symptoms. Patient admits to using a new solution to clean couch around time of symptom onset. There is a diffuse erythematous scaly rash present on dorsal aspect of bilateral lower and upper extremities. History and physical exam consistent with contact dermatitis. Patient was provided with IM steroid. Prescribed outpatient prescription for prednisone to start tomorrow and antibiotic for to cover for secondary infection. Advised PCP follow-up on Friday for reevaluation. Appropriate return precautions and supportive care discussed. Case was discussed with my ED attending Dr. Draper. Undiagnosed new problem with uncertain prognosis? @ -No Drug Therapy requiring intensive monitoring for toxicity (Heparin, Nitro, Insulin, Cardizem)? @ -No Were any procedures done? @ -No Diagnosis/symptom? @ -Contact dermatitis Acute, or Chronic, or Acute on Chronic? @ -Acute Uncomplicated (without systemic symptoms) or Complicated (systemic symptoms)? @ -Uncomplicated Side effects of treatment? @ -No Exacerbation, Progression, or Severe Exacerbation? @ -No Poses a threat to life or bodily function? How? (Chest pain, [place], VT, pneumonia, PE, COPD, DKA, ARF, appy, cholecystitis, CVA, Diverticulitis, Homicidal, Suicidal, threat to staff... and all critical care pts) @ -No Disposition Clinical Impression: Contact dermatitis Disposition: HOME SELF-CARE Condition: Stable Instructions (If sedation given, give patient instructions): Contact Dermatitis (ED) Additional Instructions: Start prednisone tomorrow. Take Keflex twice daily as prescribed. Follow-up with your PCP on Friday for reevaluation. Please return to the Emergency Department if symptoms worsen or any other concerns. Prescriptions: predniSONE [Deltasone] 40 mg PO DAILY #10 tab Cephalexin [Keflex] 500 mg PO Q12H 7 Days #14 cap Is patient prescribed a controlled substance at d/c from ED?: No Referrals: Vishnu Butcher DO [Primary Care Provider] - 1-2 days Time of Disposition: 13:44
[2024-07-02 14:02] VITALS: BP 174/73; PULSE 70; RESP 18; TEMP 98
== END 2024-07-02 13:54 | disposition home or self-care (01) ==
LOC: EC 12:26
DX: L25.9 Unspecified contact dermatitis, unspecified cause (principal)
CPT/HCPCS: 99282; 96372; J1100

== ENCOUNTER 2024-07-12 21:57 | Emergency (ER) | payer MEDICARE ==
--- NOTE | 2024-07-12 22:26 | ED ---
Skin/Abscess/FB HPI - General Chief complaint: Skin/Abscess/Foreign Body Stated complaint: B/L Leg Pain Time Seen by Provider: 07/12/24 22:22 Source: patient, RN notes reviewed Mode of arrival: ambulatory - History of Present Illness Initial comments: 79-year-old male presenting for rash on bilateral legs x 2 weeks. States he was seen in the ER 10 days ago and diagnosed with contact dermatitis. He was given a course of steroid and an antibiotic which she reports relieved symptoms, however reports when steroids ran out symptoms return. Reports a red, scaly, itchy rash in the bilateral lower legs. He also endorses the rash on the bilateral upper extremities however is not as severe as the lower extremities. He is on a blood thinner for previous CABG and Lasix. He denies chest pain, shortness of breath, fever, chills. Patient has upcoming appointment with PCP next week. - Related Data Home Medications Medication Instructions Recorded Confirmed Aspirin 81 mg PO DAILY 01/15/23 01/15/23 Clopidogrel [Plavix] 75 mg PO DAILY 01/15/23 01/15/23 Furosemide [Lasix] 20 mg PO DAILY 01/15/23 01/15/23 Ibuprofen [Motrin Ib] 400 mg PO DIRECTED PRN 01/15/23 01/15/23 Rosuvastatin [Crestor] 10 mg PO HS 01/15/23 01/15/23 Unk Benadryl 1 tab PO DIRECTED PRN 01/15/23 01/15/23 Previous Rx's Medication Instructions Recorded Cephalexin [Keflex] 500 mg PO Q12H 7 Days #14 cap 07/02/24 predniSONE [Deltasone] 40 mg PO DAILY #10 tab 07/02/24 Allergies Allergy/AdvReac Type Severity Reaction Status Date / Time No Known Allergies Allergy Verified 07/12/24 22:01 Review of Systems ROS Statement: Those systems with pertinent positive or pertinent negative responses have been documented in the HPI. ROS Other: All systems not noted in ROS Statement are negative. Past Medical History Past Medical History: Cancer, Deep Vein Thrombosis (DVT), Hyperlipidemia, Hypertension, Osteoarthritis (OA) Additional Past Medical History / Comment(s): left knee DVT 2019. SOB spot on his lung RLL , watching rt thyroid. hx skin cancer on face History of Any Multi-Drug Resistant Organisms: None Reported Past Surgical History: Coronary Bypass/CABG Additional Past Surgical History / Comment(s): omenectomy, cabg 2016 pt thinks with stents. carotid stents 2020 left , 2021 rt side Past Anesthesia/Blood Transfusion Reactions: No Reported Reaction Additional Past Anesthesia/Blood Transfusion Reaction / Comment(s): no blood transfusions. Past Psychological History: No Psychological Hx Reported Smoking Status: Never smoker Past Alcohol Use History: Occasional Past Drug Use History: None Reported - Past Family History Father Family Medical History: No Reported History General Exam General appearance: alert, in no apparent distress Respiratory exam: Present: normal lung sounds bilaterally. Absent: respiratory distress, wheezes, rales, rhonchi, stridor Cardiovascular Exam: Present: regular rate, normal rhythm, normal heart sounds. Absent: systolic murmur, diastolic murmur, rubs, gallop, clicks Extremities exam: Present: full ROM, normal capillary refill, pedal edema (1+ edema bilaterally). Absent: normal inspection (Erythematous, scaly rash on bilateral lower legs), tenderness, joint swelling, calf tenderness Neurological exam: Present: alert, oriented X3 Psychiatric exam: Present: normal affect, normal mood Skin exam: Present: warm, dry, intact, normal color Course Vital Signs 07/12/24 21:59 Temperature 97.4 F L Pulse Rate 98 Respiratory 18 Rate Blood Pressure 141/77 O2 Sat by Pulse 96 Oximetry Medical Decision Making - Medical Decision Making Was pt. sent in by a medical professional or institution ([facility], [facility], urgent care, hospital, or usp...) When possible be specific @ -No Did you speak to anyone other than the patient for history (EMS, parent, family, police, friend...)? What history was obtained from this source @ -No Did you review nursing and triage notes (agree or disagree)? Why? @ -I reviewed and agree with nursing and triage notes Were old charts reviewed (outside hosp., previous admission, EMS record, old EKG, old radiological studies, urgent care reports/EKG's, usp records)? Report findings @ -Reviewed previous ER chart from 10 days ago which diagnosed patient with dermatitis and discharged with steroids and Keflex Differential Diagnosis (chest pain, altered mental status, abdominal pain women, abdominal pain men, vaginal bleeding, weakness, fever, dyspnea, syncope, h eadache, dizziness, GI bleed, back pain, seizure, CVA, palpatations, mental health, musculoskeletal)? @ -Differential Musculoskeletal Muscular strain, contusion, ligament sprain, fracture, arthritis, septic arthritis, bursitis, cellulitis, muscle spasm, nerve compression, DVT, arterial occlusion, herpes zoster, electrolyte abnormality, tumor.... This is not meant to be in all inclusive list EKG interpreted by me (3pts min.). @ -None X-rays interpreted by me (1pt min.). @ -None done CT interpreted by me (1pt min.). @ -None done U/S interpreted by me (1pt. min.). @ -None done What testing was considered but not performed or refused? (CT, X-rays, U/S, labs)? Why? @ -None What meds were considered but not given or refused? Why? @ -None Did you discuss the management of the patient with other professionals (professionals i.e. , PA, DEBEAKER, lab, RT, psych nurse, manager social work, fabrication and layout craftsman, teacher, humane officer, case folder)? Give summary @ -No Was smoking cessation discussed for >3mins.? @ -No Was critical care preformed (if so, how long)? @ -No Were there social determinants of health that impacted care today? How? (Homelessness, low income, unemployed, alcoholism, drug addiction, transp ortation, low edu. Level, literacy, decrease access to med. care, residential, rehab)? @ -No Was there de-escalation of care discussed even if they declined (Discuss DNR or withdrawal of care, Hospice)? DNR status @ -No What co-morbidities impacted this encounter? (DM, HTN, Smoking, COPD, CAD, Cancer, CVA, ARF, Chemo, Hep., AIDS, mental health diagnosis, sleep apnea, morbid obesity)? @ -None Was patient admitted / discharged? Hospital course, mention meds given and route, prescriptions, significant lab abnormalities, going to OR and other pertinent info. @ - discharge. 79-year-old male presenting for rash on bilateral legs x 2 weeks. Patient was diagnosed with dermatitis 10 days ago and given steroid and antibiotic course. Patient states during this time rash dramatically improved however since steroid ended symptoms have returned. There is an erythematous, scaly rash on bilateral lower extremities. Neurovascularly intact. Lab work remarkable for elevated white count of 18 likely due to steroid use. CRP 3.1. I do not identify emergent etiology causing rash today. Advise close follow-up with dermatology. Appropriate return precautions and supportive care discussed. Case was discussed with the ED attending Dr. Quezada. Undiagnosed new problem with uncertain prognosis? @ -No Drug Therapy requiring intensive monitoring for toxicity (Heparin, Nitro, Insulin, Cardizem)? @ -No Were any procedures done? @ -No Diagnosis/symptom? @ -Dermatitis of bilateral legs Acute, or Chronic, or Acute on Chronic? @ -Acute Uncomplicated (without systemic symptoms) or Complicated (systemic symptoms)? @ -Uncomplicated Side effects of treatment? @ -No Exacerbation, Progression, or Severe Exacerbation? @ -No Poses a threat to life or bodily function? How? (Chest pain, USA, IA, pneumonia, PE, COPD, DKA, ARF, appy, cholecystitis, CVA, Diverticulitis, Homicidal, Suicidal, threat to staff... and all critical care pts) @ -No - Lab Data Result diagrams: 07/12/24 22:56 07/12/24 22:56 Lab Results 07/12/24 07/12/24 07/12/24 Range/Units 22:56 22:56 22:56 WBC 17.81 H (4.50-10.00) 10*3/uL RBC 5.09 (4.40-5.60) 10*6/uL Hgb 15.2 (13.0-17.0) g/dL Hct 45.2 (39.6-50.0) % MCV 88.8 (80.0-97.0) fL MCH 29.9 (27.0-32.0) pg MCHC 33.6 (32.0-37.0) g/dL Plt Count 347 (140-440) 10*3/uL MPV 11.3 (9.5-12.2) fL Immature Gran % (Auto) 0.7 % Neutrophils % 74.7 % Lymphocytes % 5.7 % Monocytes % 8.1 % Eosinophils % 10.2 % Basophils % 0.6 % Immature Gran # 0.12 H (0.00-0.04) 10*3/uL Neutrophils # 13.31 H (1.80-7.70) 10*3/uL Lymphocytes # 1.02 (0.90-5.00) 10*3/uL Monocytes # 1.44 H (0.20-1.00) 10*3/uL Eosinophils # 1.82 H (0.04-0.35) 10*3/uL Basophils # 0.10 (0.00-0.10) 10*3/uL Immature Plt Fraction 6.3 H (1.1-6.1) % Sodium 138 (137-145) mmol/L Potassium 4.3 (3.5-5.1) mmol/L Chloride 99 (98-107) mmol/L Carbon Dioxide 32 H (22-30) mmol/L Anion Gap 7 mmol/L BUN 21 H (9-20) mg/dL Creatinine 0.94 (0.66-1.25) mg/dL Est GFR (CKD-EPI)AfAm 89 (>60 ml/min/1.73 sqM) Est GFR (CKD-EPI)NonAf 77 (>60 ml/min/1.73 sqM) Glucose 149 H (74-99) mg/dL Plasma Lactic Acid Javi 1.4 (0.7-2.0) mmol/L Calcium 9.2 (8.4-10.2) mg/dL Total Bilirubin 0.7 (0.2-1.3) mg/dL AST 20 (17-59) U/L ALT 20 (4-49) U/L Alkaline Phosphatase 95 (38-126) U/L C-Reactive Protein 3.1 H (<1.0) mg/dL Total Protein 6.7 (6.3-8.2) g/dL Albumin 3.8 (3.5-5.0) g/dL Disposition Clinical Impression: Dermatitis Disposition: HOME SELF-CARE Condition: Stable Instructions (If sedation given, give patient instructions): Dermatitis (ED) Additional Instructions: Follow-up with dermatology as discussed. Please return to the Emergency Department if symptoms worsen or any other concerns. Is patient prescribed a controlled substance at d/c from ED?: No Referrals: Vishnu Butcher DO [Primary Care Provider] - 1-2 days Wilner Dominguez MD [STAFF PHYSICIAN] - 1-2 days Time of Disposition: 23:54
[2024-07-12 23:09] LABS: Basophils % (A) 0.6 %; Eosinophils # (A) 1.82 10*3/uL (0.04-0.35); Eosinophils % (A) 10.2 %; HCT 45.2 % (39.6-50.0); HGB 15.2 g/dL (13.0-17.0); Immature Platelet Fraction 6.3 % (1.1-6.1); Lymphocytes # (A) 1.02 10*3/uL (0.90-5.00); Lymphocytes % (A) 5.7 %; MCH 29.9 pg (27.0-32.0); MCHC 33.6 g/dL (32.0-37.0); MCV 88.8 fL (80.0-97.0); Mean Platelet Volume 11.3 fL (9.5-12.2); Monocytes # (A) 1.44 10*3/uL (0.20-1.00); Monocytes % (A) 8.1 %; Neutrophils # (A) 13.31 10*3/uL (1.80-7.70); Neutrophils % (A) 74.7 %; Platelet Count 347 10*3/uL (140-440); RBC 5.09 10*6/uL (4.40-5.60); RDW 14.9 % (11.5-14.5); WBC 17.81 10*3/uL (4.50-10.00)
[2024-07-12 23:19] LABS: ALT 20 U/L (4-49); AST 20 U/L (17-59); African American GFR (CKD) 89 (>60 ml/min/1.73 sqM); Albumin 3.8 g/dL (3.5-5.0); Alkaline Phosphatase 95 U/L (38-126); Anion Gap 7 mmol/L; Blood Urea Nitrogen 21 mg/dL (9-20); C Reactive Protein 3.1 mg/dL (<1.0); Calcium 9.2 mg/dL (8.4-10.2); Carbon Dioxide 32 mmol/L (22-30); Chloride 99 mmol/L (98-107); Glucose 149 mg/dL (74-99); Non-African American GFR(CKD) 77 (>60 ml/min/1.73 sqM); Potassium 4.3 mmol/L (3.5-5.1); Sodium 138 mmol/L (137-145); Total Bilirubin 0.7 mg/dL (0.2-1.3); Total Protein 6.7 g/dL (6.3-8.2)
[2024-07-13] MEDS: HYDROCORTISONE 1% OINT 28.35 GM TUBE TOPICAL PRN (00:16)
[2024-07-13 00:19] VITALS: BP 179/72; PULSE 72; RESP 16; TEMP 98.6
== END 2024-07-13 00:16 | disposition home or self-care (01) ==
LOC: EC 21:57
DX: L30.9 Dermatitis, unspecified (principal)
CPT/HCPCS: 36415; 80053; 83605; 85025; 86140; 99283

== ENCOUNTER → 2024-09-13 | Outpatient (CLI) | payer MEDICARE ==
[2024-09-13 16:48] LABS: Chol/HDL Ratio 3.36 Ratio; LDL Cholesterol,Calculated 79.4 mg/dL (0.0-131.0); VLDL Calculation 15.38 mg/dL (5.00-40.00)
[2024-09-13 16:49] LABS: ALT 14 U/L (10-49); AST 14 U/L (14-35); Albumin 3.7 g/dL (3.8-4.9); Albumin/Globulin Ratio 1.48 Ratio (1.60-3.17); Alkaline Phosphatase 99 U/L (41-126); BUN/Creat Ratio 19.78 Ratio (12.00-20.00); Blood Urea Nitrogen 17.8 mg/dL (9.0-27.0); Calcium 9.2 mg/dL (8.7-10.3); Carbon Dioxide 27.9 mmol/L (21.6-31.8); Chloride 102 mmol/L (96-109); Globulin 2.5 g/dL (1.6-3.3); Glucose 96 mg/dL (70-110); Potassium 4.8 mmol/L (3.5-5.5); Sodium 140 mmol/L (135-145); T4, Free (Free Thyroxine) 1.01 ng/dL (0.80-1.80); Total Bilirubin 0.4 mg/dL (0.3-1.2); Total Protein 6.2 g/dL (6.2-8.2)
[2024-09-13 17:23] LABS: Basophils # (A) 0.07 X 10*3/uL (0.00-0.10); Basophils % (A) 0.6 %; Eosinophils # (A) 0.43 X 10*3/uL (0.04-0.35); Eosinophils % (A) 3.6 %; HCT 45.6 % (39.6-50.0); HGB 14.5 g/dL (13.0-17.0); Lymphocytes % (A) 8.4 %; MCH 28.8 pg (27.0-32.0); MCHC 31.8 g/dL (32.0-37.0); MCV 90.5 FL (80.0-97.0); Mean Platelet Volume 10.9 FL (9.5-12.2); Monocytes # (A) 1.11 X 10*3/uL (0.20-1.00); Monocytes % (A) 9.3 %; NRBC Per 100 WBC 0 X 10*3/uL (0.00-0.01); Neutrophils # (A) 9.27 X 10*3/uL (1.80-7.70); Neutrophils % (A) 77.7 %; Platelet Count 445 X 10*3/uL (140-440); RBC 5.04 X 10*6/uL (4.40-5.60); RDW 14.6 % (11.5-14.5); WBC 11.93 X 10*3/uL (4.50-10.00)
== END | disposition home or self-care (01) ==
LOC: LABWHC1 10:58
PROVIDERS: ATTEND Internal Medicine Critical Care Medicine
DX: J92.0 Pleural plaque with presence of asbestos (principal); I82.409 Acute embolism and thrombosis of unspecified deep veins of unspecified lower extremity; I48.20 Chronic atrial fibrillation, unspecified; I25.10 Atherosclerotic heart disease of native coronary artery without angina pectoris
CPT/HCPCS: 84439; 80061; 80053; 84443; 85025; 82306; 83036; 36415; G0103